=== PATIENT | female | born 1945 | race Caucasian/White ===

== ENCOUNTER 2020-06-03 15:29 | Day surgery (SDC) | payer MEDICARE ==
[~2020-06-03] VITALS: Ht 160 cm; Wt 114.5 kg
[2020-06-03] MEDS ORDERED: PRAVACHOL 20MG20 MG PO (16:06)
[2020-06-03] MEDS ORDERED: PROVENTIL0.09 MG/A1 IH (16:07)
[2020-06-03] MEDS ORDERED: FOSAMAX 70MG TA70 MG PO (16:08)
[2020-06-03] MEDS ORDERED: ULTRAM 50MG TAB50 MG (16:08)
[2020-06-03] MEDS ORDERED: NOVOLOG FLEX100 U/ML SQ (16:09)
[2020-06-03] MEDS ORDERED: LANTUS SOLOS100 U/ML SQ (16:10)
[2020-06-03] MEDS ORDERED: TRULICITY1.5 MG/0.5 SQ (16:10)
[2020-06-03] MEDS ORDERED: HCTZ 25MG TAB25 MG PO (16:11)
[2020-06-03] MEDS ORDERED: COZAAR 50MG50 MG/TAB PO (16:11)
[2020-06-03] MEDS ORDERED: ASPIRIN 81M81 MG/TA2 PO (16:12)
[2020-06-03 16:42] VITALS: BP 158/56; PULSE 68; TEMP 98.6
[2020-06-03 20:29] VITALS: BP 140/64; PULSE 67; TEMP 98.8
== END 2020-06-03 19:53 | disposition home or self-care (01) ==
LOC: SDCO 15:29 → SURG 15:32 → SDCO 16:00 → MEDICAL 17:51 → SDCO 19:52
DX: T18.128A Food in esophagus causing other injury, initial encounter (principal); K21.00 Gastro-esophageal reflux disease with esophagitis, without bleeding; E03.9 Hypothyroidism, unspecified; E11.9 Type 2 diabetes mellitus without complications; Z88.8 Allergy status to other drugs, medicaments and biological substances; K22.2 Esophageal obstruction; Z79.4 Long term (current) use of insulin; J45.909 Unspecified asthma, uncomplicated; Z87.891 Personal history of nicotine dependence; E78.5 Hyperlipidemia, unspecified; M85.80 Other specified disorders of bone density and structure, unspecified site
CPT/HCPCS: OP; J7030